=== PATIENT | female | born 1995 | race Caucasian/White ===

== ENCOUNTER 2018-02-03 08:40 | Emergency (ER) | payer BC ==
[2018-02-03 09:19] VITALS: BP 119/61
--- NOTE | 2018-02-03 10:17 | UC ---
Abdominal Pain Female HPI - HPI Summary HPI Summary: SUDDEN ONSET OF PERIUMBILICAL ABDOMINAL PAIN YESTERDAY AFTERNOON AROUND 2 PM. IS NOW RADIATING TO HER RIGHT LOWER QUADRANT. PATIENT HAS HAD CHILLS BUT DENIES ANY DOCUMENTED FEVER. PAIN WORSE WITH MOVEMENT. IBUPROFEN NOT HELPING. IS NAUSEATED AND HAD 3 EPISODES OF VOMITING TODAY. NO DIARRHEA OR URINARY SYMPTOMS. - History of Current Complaint Chief Complaint: UCAbdominalPain Stated Complaint: LOWER ABD PAIN Time Seen by Provider: 02/03/18 10:01 Hx Obtained From: Patient Hx Last Menstrual Period: 01/19/18-01/22/18 Onset/Duration: Sudden Onset, Lasting Hours, Still Present Timing: Constant Severity Initially: Moderate Severity Currently: Moderate Pain Intensity: 8 Pain Scale Used: 0-10 Numeric Location: Discrete At: RLQ Radiates: No Character: Sharp Aggravating Factor(s): Nothing Alleviating Factor(s): Nothing Associated Signs and Symptoms: Positive: Decreased Appetite, Nausea, Vomiting. Negative: Fever, Urinary Symptoms, Vaginal Discharge Allergies/Adverse Reactions: Allergies Allergy/AdvReac Type Severity Reaction Status Date / Time bees Allergy Anaphylatic Uncoded 02/03/18 09:19 Shock Home Medications: Home Medications EPINEPHrine [Epipen] 1 inj ONCE 02/03/18 [History Confirmed 02/03/18] PMH/Surg Hx/FS Hx/Imm Hx Respiratory History: Asthma - Surgical History Surgical History: None - Family History Known Family History: Negative: Hypertension - Social History Alcohol Use: Occasionally Substance Use Type: None Smoking Status (MU): Never Smoked Tobacco - Immunization History Vaccination Up to Date: Yes Review of Systems Constitutional: Chills Respiratory: Negative Cardiovascular: Negative Gastrointestinal: Abdominal Pain, Nausea Genitourinary: Negative All Other Systems Reviewed And Are Negative: Yes Physical Exam Triage Information Reviewed: Yes Appearance: Well-Nourished, Pain Distress - MODERATE Vital Signs: Initial Vital Signs Temp 99.7 F 02/03/18 09:10 Pulse 84 02/03/18 09:10 Resp 18 02/03/18 09:10 BP 119/61 02/03/18 09:10 Pulse Ox 100 02/03/18 09:10 Vital Signs Reviewed: Yes Eyes: Positive: Conjunctiva Clear ENT: Positive: Hearing grossly normal Neck: Positive: Supple Respiratory Exam: Normal Cardiovascular Exam: Normal Abdomen Description: Positive: Soft, Guarding, Other: - EXQUISITELY TTP PERIUMBILICAL AND RLQ. PAIN WITH PERCUSSION. POSITIVE OBTURATOR. UNABLE TO TEST PSOAS DUE TO PT DISCOMFORT. Bowel Sounds: Positive: Present Musculoskeletal: Positive: No Edema Neurological: Positive: Alert Psychological: Positive: Age Appropriate Behavior Skin: Negative: rashes Abd Pain Female Course/Dx - Course Course Of Treatment: TO [facility] ED BY PRIVATE CAR. PT OFFERED TRANSPORT BY AMBULANCE BUT DECLINES. ADVISED THAT BY NOT TRAVELING IN A MONITORED SETTING SHE COULD BE RISKING WORSENING OF HER CONDITION THAT COULD POSE A THREAT TO HER LIFE, HEALTH AND MEDICAL SAFETY. SHE. VERBALIZES UNDERSTANDING AND CONTINUES TO DECLINE AMBULANCE TRANSFER. - Differential Dx/Diagnosis Provider Diagnoses: RLQ PAIN - SUSPECT APPY - Physician Notification/Consults Discussed Care of Patient With: Leta Christianson - TO [facility] ED BY PRIVATE CAR Time Discussed With Above Provider: 10:12 Instructed by Provider To: MD Will See In ED Discharge - Sign-Out/Discharge Documenting (check all that apply): Discharge/Admit/Transfer - Discharge Plan Condition: Stable Disposition: HOME Patient Education Materials: Abdominal Pain (ED) Referrals: ROSSY Peña [Primary Care Provider] - If Needed Additional Instructions: YOUR PRESENTATION IS CONCERNING FOR ACUTE APPENDICITIS. GO DIRECTLY TO THE [facility] ED FROM HERE FOR FURTHER EVALUATION. DO NOT EAT OR DRINK ANYTHING. YOU HAVE DECLINED AMBULANCE TRANSFER. BE ADVISED THAT BY NOT TRAVELING IN A MONITORED SETTING YOU COULD BE RISKING WORSENING OF YOUR CONDITION THAT COULD POSE A THREAT TO YOUR LIFE, HEALTH AND MEDICAL SAFETY. - Billing Disposition and Condition Condition: STABLE Disposition: HOME
== END 2018-02-03 10:14 | disposition home or self-care (01) ==
LOC: UCCORT 08:40
DX: R10.31 Right lower quadrant pain (principal)
CPT/HCPCS: 99212; G0463

== ENCOUNTER 2019-05-09 17:29 | Emergency (ER) | payer BC, OTHER ==
[2019-05-09 17:43] VITALS: BP 130/79
--- NOTE | 2019-05-09 18:11 | UC ---
Upper Extremity HPI - HPI Summary HPI Summary: Pt c/o right wrist pain along radial aspect from mid forearm to thumb. Pt was walking her dog and he "took off" on her and puller her right arm with most pain in right wrist. - History of Current Complaint Chief Complaint: UCUpperExtremity Stated Complaint: RT ARM INJURY Time Seen by Provider: 05/09/19 17:45 Hx Obtained From: Patient Hx Last Menstrual Period: pt using an IUD ?: No Onset/Duration: Sudden Onset, Still Present Severity Initially: Moderate Severity Currently: Moderate Pain Intensity: 6 Location Of Pain: Is Discrete @ - right wrist, Radiates To - lateral aspect of right forerm Character: Dull, Aching, Stiffness Aggravating Factor(s): Movement Alleviating Factor(s): Rest Associated Signs And Symptoms: Positive: Negative Related History: Dominant Hand Right - Risk Factors DVT Risk Factors: Negative Septic Arthritis Risk Factor: Negative Compartment Syndrome Risk Factors: Pain - Allergies/Home Medications Allergies/Adverse Reactions: Allergies Allergy/AdvReac Type Severity Reaction Status Date / Time bees Allergy Anaphylatic Uncoded 05/09/19 17:43 Shock PMH/Surg Hx/FS Hx/Imm Hx Previously Healthy: Yes - Surgical History Surgical History: None - Family History Known Family History: Negative: Hypertension - Social History Occupation: Employed Full-time Lives: With Family Alcohol Use: Occasionally Substance Use Type: None Smoking Status (MU): Never Smoked Tobacco Have You Smoked in the Last Year: No - Immunization History Vaccination Up to Date: Yes Review of Systems All Other Systems Reviewed And Are Negative: Yes Constitutional: Positive: Negative Skin: Positive: Negative Eyes: Positive: Negative ENT: Positive: Negative Respiratory: Positive: Negative Cardiovascular: Positive: Negative Gastrointestinal: Positive: Negative Genitourinary: Positive: Negative Motor: Positive: Decreased ROM - rigth wrist and thumb Musculoskeletal: Positive: Arthralgia, Decreased ROM, Myalgia Neurological: Positive: Negative Psychological: Positive: Negative Is Patient Immunocompromised?: No Physical Exam Triage Information Reviewed: Yes Appearance: Pain Distress Vital Signs: Initial Vital Signs Temp 99.6 F 05/09/19 17:38 Pulse 70 05/09/19 17:38 Resp 18 05/09/19 17:38 BP 130/79 05/09/19 17:38 Pulse Ox 100 05/09/19 17:38 Vital Signs Reviewed: Yes Eye Exam: Normal ENT Exam: Normal Dental Exam: Normal Neck exam: Normal Respiratory: Positive: No respiratory distress Musculoskeletal: Positive: Strength Limited @ - right thumb and forearm, ROM Limited @ - right thumb and forearm Neurological Exam: Normal Psychological Exam: Normal Skin Exam: Normal Diagnostics - Radiology No standard instances Radiology Interpretation Completed By: Radiologist - 3 views of the wrist demonstrates no fracture. No other bone or joint abnormality is identified. IMPRESSION: NO FRACTURE OF THE WRIST IS NOTED. Upper Extremity Course/Dx - Differential Dx/Diagnosis Differential Diagnosis/HQI/PQRI: Fracture (Closed), Strain, Sprain Provider Diagnosis: Injury of right forearm and wrist Discharge - Sign-Out/Discharge Documenting (check all that apply): Patient Departure All imaging exams completed and their final reports reviewed: Yes - Discharge Plan Condition: Stable Disposition: HOME Patient Education Materials: Wrist Sprain (ED), Safe Use of NSAIDs (ED) Forms: *Work Release, *Gen. Provider Communication Referrals: [facility] [place] PHYSICIAN REFERRAL [Outside] - If Needed Ronald Carbajal MD [Medical Doctor] - If Needed No Primary Care Phys,NOPCP [Primary Care Provider] - - Billing Disposition and Condition Condition: STABLE Disposition: Home
== END 2019-05-09 18:21 | disposition home or self-care (01) ==
LOC: UCCORT 17:29
DX: S59.911A Unspecified injury of right forearm, initial encounter (principal); X58.XXXA Exposure to other specified factors, initial encounter; Y93.K1 Activity, walking an animal; Y92.9 Unspecified place or not applicable
CPT/HCPCS: 99212; G0463

== ENCOUNTER 2019-07-16 17:22 | Emergency (ER) | payer OTHER ==
--- OUTSIDE RECORDS SUMMARY | 2019-07-16 17:31 | XMS REPORT | Continuity of Care Document ---
:1995 External Reference #:[id number] Author Name Anuj Ledbetter MD (transmitted by agent of provider Arlene Woods) Address [address] [place] [address] Care Team Providers Name Role Phone Keyur Lee PA - Physician Care Team Information V Block Saw Operator [phone] Debt Counselor Giovani Moyer MD Care Team Information V Block Saw Operator [phone] Problems Active Problems Provider Date Allergic rhinitis due to pollen Perla S. 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 Fenstermacher, RPA-C Onset: 12/07/2018 Allergic contact dermatitis due to Perla S. Fenstermacher, RPA-C Onset: 12/07 metal Allergy to bee venom Perla S. Fenstermacher, RPA-C Onset: 12/07/2018 Allergic rhinitis Perla S. Fenstermacher, RPA-C Onset: 12/07/2018 Allergic rhinitis due to animals Perla S. Fenstermacher, RPA-C Onset: 2018 Mild intermittent asthma Perla S. Fenstermacher, RPA-C Onset: 12/07/2018 Allergic urticaria Perla S. Fenstermacher, RPA-C Onset: 12/07/2018 Social History Type Date Description Comments Sex Unknown Tobacco Use Start: Unknown Patient has never smoked Smoking Status Reviewed: 03/15/19 Patient has never smoked Allergies, Adverse Reactions, Alerts Description No Known Drug Allergies Medications Active Medications SIG Qnty Indications Ordering Provider Date Prednisone take 3 tablets by 12tabs Anuj Curran 05/24/2019 10mg Tablets mouth twice a day MD Anatoly for 2 days Mometasone Furoate apply a thin 45gm L23.0 Anuj Rowell. 12/07/2018 0.1% layer to the MD Anatoly Ointment affected area(s) by topical route 2 times per day as needed. Epinephrine use as directed 4units Z91.030 Anuj Rowell. 12/07/2018 0.3mg/0.3ML as needed for MD Anatoly Solution Auto-Inject anaphylaxis. Ventolin HFA inhale 2 puffs by 16gm J45.20 Anuj Curran 12/07/2018 inhalation route MD Anatoly 108(90Base) mcg/Act every 4 hours as Aerosol needed Cetirizine HCL take one tablet 30tabs Anuj Curran 12/07/2018 10mg by mouth every MD Anatoly Tablets day at bedtime Spironolactone Unknown 50mg Tablets Fluocinonide Unknown 0.1% Cream Medications Administered in Office Medication SIG Qnty Indications Ordering Provider Date Allergy Injection 2 Or More Anuj Ledbetter MD 06/14/2019 Injection Allergy Injection 2 Or More Anuj Ledbetter MD 06/07/2019 Injection Allergy Injection 2 Or More Anuj Ledbetter MD 05/31/2019 Injection Allergy Injection 2 Or More Anuj Ledbetter MD 05/23/2019 Injection Allergy Injection 2 Or More Anuj Ledbetter MD 05/21/2019 Injection Allergy Injection 2 Or More Anuj Ledbetter MD 05/15/2019 Injection Allergy Injection 2 Or More Anuj Ledbetter MD 05/10/2019 Injection Allergy Injection 2 Or More Anuj Ledbetter MD 05/08/2019 Injection Allergy Injection 2 Or More Anuj Ledbetter MD 05/03/2019 Injection Allergy Injection 2 Or More Anuj Ledbetter MD 05/01/2019 Injection Allergy Injection 2 Or More Anuj Ledbetter MD 04/27/2019 Injection Allergy Injection 2 Or More Anuj Ledbetter MD 04/24/2019 Injection Allergy Injection 2 Or More Anuj Ledbetter MD 04/19/2019 Injection Allergy Injection 2 Or More Anuj Ledbetter MD 04/17/2019 Injection Allergy Injection 2 Or More Anuj Ledbetter MD 04/13/2019 Injection Allergy Injection 2 Or More Anuj Ledbetter MD 04/10/2019 Injection Allergy Injection 2 Or More Anuj Ledbetter MD 04/04/2019 Injection Allergy Injection 2 Or More Anuj Ledbetter MD 04/02/2019 Injection Allergy Injection 2 Or More Anuj Ledbetter MD 03/30/2019 Injection Allergy Injection 2 Or More Anuj Ledbetter MD 03/27/2019 Injection Allergy Injection 2 Or More Anuj Ledbetter MD 03/23/2019 Injection Allergy Injection 2 Or More Anuj Ledbetter MD 03/20/2019 Injection Immunizations Description No Information Available Vital Signs Date Vital Result Comment 06/14/2019 10:03am BP Systolic 108 mmHg BP Diastolic 81 mmHg Heart Rate 80 /min O2 % BldC Oximetry 96 % 05/23/2019 2:32pm BP Systolic 128 mmHg BP Diastolic 79 mmHg Heart Rate 94 /min Respiratory Rate 16 /min O2 % BldC Oximetry 98 % Results Test Date Facility Test Result H/L Range Note Order 12/19/2018 [facility] Nitric Oxide <pending> Procedures Date Code Description Status 06/14/2019 05172 Allergy Antigens Mult Dose Vials, Five Insect Venoms Completed 06/14/2019 30668 Allergy Injection 2 Or More Completed 06/07/2019 66707 Allergy Antigens Mult Dose Vials, Five Insect Venoms Completed 06/07/2019 86076 Allergy Injection 2 Or More Completed 05/31/2019 85518 Allergy Antigens Mult Dose Vials, Five Insect Venoms Completed 05/31/2019 64658 Allergy Injection 2 Or More Completed 05/23/2019 88982 Allergy Antigens Mult Dose Vials, Five Insect Venoms Completed 05/23/2019 20758 Allergy Injection 2 Or More Completed 05/21/2019 37902 Allergy Antigens Mult Dose Vials, Five Insect Venoms Completed 05/21/2019 79610 Allergy Injection 2 Or More Completed 05/15/2019 95648 Allergy Antigens Mult Dose Vials, Five Insect Venoms Completed 05/15/2019 02431 Allergy Injection 2 Or More Completed 05/10/2019 91168 Allergy Injection 2 Or More Completed 05/10/2019 39245 Allergy Antigens Mult Dose Vials, Five Insect Venoms Completed 05/08/2019 12419 Allergy Antigens Mult Dose Vials, Five Insect Venoms Completed 05/08/2019 47953 Allergy Injection 2 Or More Completed 05/03/2019 62475 Allergy Antigens Mult Dose Vials, Five Insect Venoms Completed 05/03/2019 53914 Allergy Injection 2 Or More Completed 05/01/2019 58764 Allergy Antigens Mult Dose Vials, Five Insect Venoms Completed 05/01/2019 09886 Allergy Injection 2 Or More Completed 04/27/2019 41905 Allergy Antigens Mult Dose Vials, Five Insect Venoms Completed 04/27/2019 74746 Allergy Injection 2 Or More Completed 04/24/2019 15043 Allergy Antigens Mult Dose Vials, Five Insect Venoms Completed 04/24/2019 30059 Allergy Injection 2 Or More Completed 04/19/2019 22501 Allergy Injection 2 Or More Completed 04/19/2019 22631 Allergy Antigens Mult Dose Vials, Five Insect Venoms Completed 04/17/2019 59146 Allergy Antigens Mult Dose Vials, Five Insect Venoms Completed 04/17/2019 64499 Allergy Injection 2 Or More Completed 04/13/2019 72936 Allergy Antigens Mult Dose Vials, Five Insect Venoms Completed 04/13/2019 78426 Allergy Injection 2 Or More Completed 04/10/2019 79952 Allergy Antigens Mult Dose Vials, Five Insect Venoms Completed 04/10/2019 74278 Allergy Injection 2 Or More Completed 04/04/2019 78119 Allergy Antigens Mult Dose Vials, Five Insect Venoms Completed 04/04/2019 68894 Allergy Injection 2 Or More Completed 04/02/2019 11215 Allergy Antigens Mult Dose Vials, Five Insect Venoms Completed 04/02/2019 99352 Allergy Injection 2 Or More Completed 03/30/2019 01223 Allergy Injection 2 Or More Completed 03/30/2019 24356 Allergy Antigens Mult Dose Vials, Five Insect Venoms Completed 03/27/2019 60004 Allergy Antigens Mult Dose Vials, Five Insect Venoms Completed 03/27/2019 27183 Allergy Injection 2 Or More Completed 03/23/2019 71772 Allergy Antigens Mult Dose Vials, Five Insect Venoms Completed 03/23/2019 09240 Allergy Injection 2 Or More Completed 03/20/2019 62477 Allergy Antigens Mult Dose Vials, Five Insect Venoms Completed 03/20/2019 53497 Allergy Injection 2 Or More Completed 03/15/2019 75003 Nitric Oxide Gas Determination Completed 03/15/2019 37006 Bronchodilation Responsiveness Spirometry Pre/Post Completed Bronchodil Adm 12/19/2018 18579 Nitric Oxide Gas Determination Completed 12/19/2018 30927 Bronchodilation Responsiveness Spirometry Pre/Post Completed Bronchodil Adm Medical Devices Description No Information Available Encounters Type Date Location Provider Dx Diagnosis Office Visit 03/15/2019 Krzysztof Torres Z91.018 Allergy to other 8:30a Fenstermacher, foods RPA-C Z91.030 Bee allergy status J30.1 Allergic rhinitis due to pollen J30.89 Other allergic rhinitis J45.20 Mild intermittent asthma, uncomplicated Office Visit 12/19/2018 9:30a Krzysztof Torres J45.20 Mild intermittent Fenstermacher, RPA-C asthma, uncomplicated J30.1 Allergic rhinitis due to pollen J30.89 Other allergic rhinitis L50.0 Allergic urticaria Z91.018 Allergy to other foods Z91.030 Bee allergy status L23.0 Allergic contact dermatitis due to metals Assessments Date Code Description Provider 06/14/2019 T63.461A Toxic effect of venom of wasps, Anuj Ledbetter MD accidental, init 06/14/2019 T63.461A Toxic effect of venom of wasps, Anuj Ledbetter MD accidental, init 06/07/2019 T63.461A Toxic effect of venom of wasps, Anuj Ledbetter MD accidental (unintentional), initial encounter 06/07/2019 T63.461A Toxic effect of venom of wasps, Anuj Ledbetter MD accidental (unintentional), initial encounter 05/31/2019 T63.461A Toxic effect of venom of waspAnuj joseph MD accidental (unintentional), initial encounter 05/31/2019 T63.461A Toxic effect of venom of wasps, Anuj Ledbetter MD accidental (unintentional), initial encounter 05/23/2019 T63.461A Toxic effect of venom of waspsAnuj MD accidental (unintentional), initial encounter 05/23/2019 T63.461A Toxic effect of venom of wasps, Anuj Ledbetter MD accidental (unintentional), initial encounter 05/21/2019 T63.461A Toxic effect of venom of wasps, Anuj Ledbetter MD accidental (unintentional), initial encounter 05/21/2019 T63.461A Toxic effect of venom of wasps, Anuj Ledbetter MD accidental (unintentional), initial encounter 05/15/2019 T63.461A Toxic effect of venom of wasps, Anuj Ledbetter MD accidental (unintentional), initial encounter 05/15/2019 T63.461A Toxic effect of venom of wasps, Anuj Ledbetter MD accidental (unintentional), initial encounter 05/10/2019 T63.461A Toxic effect of venom of wasps, Anuj Ledbetter MD accidental (unintentional), initial encounter 05/10/2019 T63.461A Toxic effect of venom of wasps, Anuj Ledbetter MD accidental (unintentional), initial encounter 05/08/2019 T63.461A Toxic effect of venom of wasps, Anuj Ledbetter MD accidental (unintentional), initial encounter 05/08/2019 T63.461A Toxic effect of venom of wasps, Anuj Ledbetter MD accidental (unintentional), initial encounter 05/03/2019 T63.461A Toxic effect of venom of wasps, Anuj Ledbetter MD accidental (unintentional), initial encounter 05/03/2019 T63.461A Toxic effect of venom of wasps, Anuj Ledbetter MD accidental (unintentional), initial encounter 05/01/2019 T63.461A Toxic effect of venom of wasps, Anuj Ledbetter MD accidental (unintentional), initial encounter 05/01/2019 T63.461A Toxic effect of venom of wasps, Anuj Ledbetter MD accidental (unintentional), initial encounter 04/27/2019 T63.461A Toxic effect of venom of wasps, Anuj Ledbetter MD accidental, init 04/27/2019 T63.461A Toxic effect of venom of wasps, Anuj Ledbetter MD accidental, init 04/24/2019 T63.461A Toxic effect of venom of wasps, Anuj Ledbetter MD accidental, init 04/24/2019 T63.461A Toxic effect of venom of wasps, Anuj Ledbetter MD accidental, init 04/19/2019 T63.461A Toxic effect of venom of wasps, Anuj Ledbetter MD accidental, init 04/19/2019 T63.461A Toxic effect of venom of wasps, Anuj Ledbetter MD accidental, init 04/17/2019 T63.461A Toxic effect of venom of wasps, Anuj Ledbetter MD accidental, init 04/17/2019 T63.461A Toxic effect of venom of wasps, Anuj Ledbetter MD accidental, init 04/13/2019 T63.461A Toxic effect of venom of wasps, Anuj Ledbetter MD accidental, init 04/13/2019 T63.461A Toxic effect of venom of wasps, Anuj Ledbetter MD accidental, init 04/10/2019 T63.461A Toxic effect of venom of wasps, Anuj Ledbetter MD accidental, init 04/10/2019 T63.461A Toxic effect of venom of wasps, Anuj Ledbetter MD accidental, init 04/04/2019 T63.461A Toxic effect of venom of wasps, Anuj Ledbetter MD accidental, init 04/04/2019 T63.461A Toxic effect of venom of wasps, Anuj Ledbetter MD accidental, init 04/02/2019 T63.461A Toxic effect of venom of wasps, Anuj Ledbetter MD accidental, init 04/02/2019 T63.461A Toxic effect of venom of wasps, Anuj Ledbetter MD accidental, init 03/30/2019 T63.461A Toxic effect of venom of wasps, Anuj Ledbetter MD accidental, init 03/30/2019 T63.461A Toxic effect of venom of wasps, Anuj Ledbetter MD accidental, init 03/27/2019 T63.461A Toxic effect of venom of wasps, Anuj Ledbetter MD accidental, init 03/27/2019 T63.461A Toxic effect of venom of wasps, Anuj Ledbetter MD accidental, init 03/23/2019 T63.461A Toxic effect of venom of wasps, Anuj Ledbetter MD accidental, init 03/23/2019 T63.461A Toxic effect of venom of wasps, Anuj Ledbetter MD accidental, init 03/20/2019 T63.461A Toxic effect of venom of wasps, Anuj Ledbetter MD accidental, init 03/20/2019 T63.461A Toxic effect of venom of wasps, Anuj Ledbetter MD accidental, init 03/15/2019 Z91.018 Allergy to other foods Perla S. Fenstermacher, RPA-C 03/15/2019 Z91.030 Bee allergy status Perla S. Fenstermacher, RPA-C 03/15/2019 J30.1 Allergic rhinitis due to pollen Perla S. Fenstermacher, RPA -C 03/15/2019 J30.89 Other allergic rhinitis Perla S. Fenstermacher, RPA-C 03/15/2019 J45.20 Mild intermittent asthma, Perla S. Fenstermacher, RPA-C uncomplicated 12/19/2018 J45.20 Mild intermittent asthma, Perla S. Fenstermacher, RPA-C uncomplicated 12/19/2018 J30.1 Allergic rhinitis due to pollen Perla S. Fenstermacher, RPA -C 12/19/2018 J30.89 Other allergic rhinitis Perla S. Fenstermacher, RPA-C 12/19/2018 L50.0 Allergic urticaria Perla S. Fenstermacher, RPA-C 12/19/2018 Z91.018 Allergy to other foods Perla S. Fenstermacher, RPA-C 12/19/2018 Z91.030 Bee allergy status Perla S. Fenstermacher, RPA-C 12/19/2018 L23.0 Allergic contact dermatitis due to Perla S. Fenstermacher, RPA-C metals Plan of Treatment Future Appointment(s):06/19/2019 8:55 am - Injection 1 at [email or web address]/09/2020 10 :00 am - ANGELA [facility] at [place] Functional Status Description No Information Available Mental Status Description No Information Available Referrals Description No Information Available
--- OUTSIDE RECORDS SUMMARY | 2019-07-16 17:31 | XMS REPORT | Continuity of Care Document ---
:1995 External Reference #:[id number] Author Name Ainsley Wayne Care Team Providers Name Role Phone Keyur Lee PA - Physician Care Team Information Fiber Technician [phone] [employer] Consultant Giovani Moyer MD Care Team Information Fiber Technician [phone] Problems Active Problems Provider Date Allergic rhinitis [...] Medications SIG Qnty Indications Ordering Provider Date Mometasone Furoate apply a thin 45gm L23.0 Anuj Curran 12/07/2018 0.1% layer to the MD Anatoly Ointment affected area(s) by topical route 2 times per day as needed. Epinephrine use as directed 4units Z91.030 Christopher AOlga 12/07/2018 0.3mg/0.3ML as needed for MD Anatoly Solution Auto-Inject anaphylaxis. Ventolin HFA inhale 2 puffs by 16gm J45.20 Clydeophmac A. 12/07/2018 inhalation route MD Anatoly 108(90Base) mcg/Act every 4 hours as Aerosol needed Cetirizine HCL take one tablet 30tabs Anuj Rowell. 12/07/2018 10mg by mouth every MD Anatoly Tablets day at bedtime Spironolactone Unknown 50mg Tablets Fluocinonide Unknown 0.1% Cream History Medications Levocetirizine take one 30tabs J30.81 Anuj Curran 12/07/2018 - Dihydrochloride tablet by MD Anatoly 12/07/2018 5mg mouth daily at Tablets bedtime Qvar Redihaler inhale 2 puffs 1units J45.20 Anuj Rowell. 12/07/2018 - 80mcg/Act twice a day. MD Anatoly 03/15/2019 Aerosol rinse mouth after use. Medications Administered in Office Medication SIG Qnty [...] Available Vital Signs Date Vital Result Comment 05/23/2019 2:32pm BP Systolic 128 mmHg BP Diastolic 79 mmHg Heart Rate 94 /min Respiratory Rate 16 /min O2 % BldC Oximetry 98 % 03/15/2019 8:47am BP Systolic 116 mmHg BP Diastolic 84 mmHg Height 66 inches 5'6" Weight 185.00 lb BMI (Body Mass Index) 29.9 kg/m2 Heart Rate 67 /min Respiratory Rate 16 /min Body Temperature 98.1 F O2 % BldC Oximetry 99 % Results Test Date Facility Test Result H/L Range Note Order 12/19/2018 [facility] Nitric Oxide <pending> Order 12/07/2018 [facility] Inhaler <pending> Training-Patient Demonstrates Competency Order 12/07/2018 [facility] Skin Test Seasonal and <pending> Environmental Order 12/07/2018 [facility] Blood Collection via < pending> Venipuncture Rast Food <pending> Procedures Date Code Description Status 05/23/2019 92712 Allergy Antigens Mult Dose Vials, Five Insect Venoms Completed 05/23/2019 77708 Allergy Injection 2 Or More Completed 05/21/2019 01958 Allergy Antigens Mult Dose Vials, Five Insect Venoms Completed 05/21/2019 65116 Allergy Injection 2 Or More Completed 05/15/2019 03915 Allergy Antigens Mult Dose Vials, Five Insect Venoms Completed 05/15/2019 65201 Allergy Injection 2 Or More Completed 05/10/2019 72746 Allergy Antigens Mult Dose Vials, Five Insect Venoms Completed 05/10/2019 36283 Allergy Injection 2 Or More Completed 05/08/2019 53323 Allergy Antigens Mult Dose Vials, Five Insect Venoms Completed 05/08/2019 57042 Allergy Injection 2 Or More Completed 05/03/2019 63328 Allergy Injection 2 Or More Completed 05/03/2019 49423 Allergy Antigens Mult Dose Vials, Five Insect Venoms Completed 05/01/2019 14082 Allergy Antigens Mult Dose Vials, Five Insect Venoms Completed 05/01/2019 85681 Allergy Injection 2 Or More Completed 04/27/2019 94002 Allergy Antigens Mult Dose Vials, Five Insect Venoms Completed 04/27/2019 44092 Allergy Injection 2 Or More Completed 04/24/2019 48420 Allergy Antigens Mult Dose Vials, Five Insect Venoms Completed 04/24/2019 29228 Allergy Injection 2 Or More Completed 04/19/2019 52953 Allergy Antigens Mult Dose Vials, Five Insect Venoms Completed 04/19/2019 74120 Allergy Injection 2 Or More Completed 04/17/2019 94548 Allergy Antigens Mult Dose Vials, Five Insect Venoms Completed 04/17/2019 17363 Allergy Injection 2 Or More Completed 04/13/2019 01183 Allergy Injection 2 Or More Completed 04/13/2019 81640 Allergy Antigens Mult Dose Vials, Five Insect Venoms Completed 04/10/2019 95854 Allergy Antigens Mult Dose Vials, Five Insect Venoms Completed 04/10/2019 11520 Allergy Injection 2 Or More Completed 04/04/2019 21334 Allergy Antigens Mult Dose Vials, Five Insect Venoms Completed 04/04/2019 45550 Allergy Injection 2 Or More Completed 04/02/2019 10134 Allergy Antigens Mult Dose Vials, Five Insect Venoms Completed 04/02/2019 33880 Allergy Injection 2 Or More Completed 03/30/2019 29331 Allergy Antigens Mult Dose Vials, Five Insect Venoms Completed 03/30/2019 59987 Allergy Injection 2 Or More Completed 03/27/2019 73335 Allergy Antigens Mult Dose Vials, Five Insect Venoms Completed 03/27/2019 76700 Allergy Injection 2 Or More Completed 03/23/2019 79917 Allergy Injection 2 Or More Completed 03/23/2019 31468 Allergy Antigens Mult Dose Vials, Five Insect Venoms Completed 03/20/2019 48908 Allergy Antigens Mult Dose Vials, Five Insect Venoms Completed 03/20/2019 69762 Allergy Injection 2 Or More Completed 03/15/2019 61895 Nitric Oxide Gas Determination Completed 03/15/2019 16464 Bronchodilation Responsiveness Spirometry Pre/Post Completed Bronchodil Adm 12/19/2018 05326 Nitric Oxide Gas Determination Completed 12/19/2018 72759 Bronchodilation Responsiveness Spirometry Pre/Post Completed Bronchodil Adm 12/07/2018 33143 Nitric Oxide Gas Determination Completed 12/07/2018 52817 Allergy Tests Percutaneous W/ Allergenic Extracts Completed 12/07/2018 80627 Demonstration/Eval,Of Patient Utilization Of Completed Aerosol,Nebulizer 12/07/2018 19376 Bronchodilation Responsiveness Spirometry Pre/Post Completed Bronchodil Adm Medical Devices Description No Information Available Encounters Type Date Location Provider Dx Diagnosis Office Visit 03/15/2019 Krzysztof Robbins. 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 Fenstermacher, RPA-C uncomplicated 12/19/2018 J30.1 Allergic rhinitis due to pollen Perla S. Fenstermacher, RPA -C 12/19/2018 J30.89 Other allergic rhinitis Perla S. Fenstermacher, RPA-C 12/19/2018 L50.0 Allergic urticaria Perla S. Fenstermacher, RPA-C 12/19/2018 Z91.018 Allergy to other foods Perla S. Fenstermacher, RPA-C 12/19/2018 Z91.030 Bee allergy status Perla S. Fenstermacher, RPA-C 12/19/2018 L23.0 Allergic contact dermatitis due to Perla Robbins. Fenstermacher, RPA-C metals 12/07/2018 Z91.018 Allergy to other foods Perla S. Fenstermacher, RPA-C 12/07/2018 L50.0 Allergic urticaria Perla S. Fenstermacher, RPA-C 12/07/2018 J45.20 Mild intermittent asthma, Perla S. Fenstermacher, RPA-C uncomplicated 12/07/2018 J30.81 Allergic rhinitis due to animal Perla S. Fenstermacher, RPA-C (cat) (dog) hair and dander 12/07/2018 J30.89 Other allergic rhinitis Perla S. Fenstermacher, RPA-C 12/07/2018 Z91.030 Bee allergy status Perla S. Fenstermacher, RPA-C 12/07/2018 L23.0 Allergic contact dermatitis due to Perla Mancia, MEGAN-C metals Plan of Treatment Future Appointment(s):05/29/2019 2:15 pm - Injection 1 at [facility]68/09/2020 10 :00 am - ANGELA Levi at [facility]89/13/2019 - Perla Mancia, MEGAN- CZ91.018 Allergy to other foodsComments:Patient completed food elimination diet with cautious reintroduction of one food at a time. She has been able to identify gluten and potatoes as triggers for her gastrointestinal symptoms. Continued avoidance of these foods is recommended.Follow up:If condition worsens.Z91.030 Bee allergy statusComments:Patient has decided she would like to start bee venom immunotherapy. Patient will receive injectionson Tuesday in [place] and Tuesday in [place] until she reaches maintenance. Continue to carry EpiPen at all times.Follow up:6 months.J30.1 Allergic rhinitis due to pollenComments:Continue Cetirizine as needed for breakthrough nasal allergy symptoms.Follow up:6 months.J30.89 Other allergic kneeywrwB86.20 Mild intermittent asthma, uncomplicatedComments:Today's PFT is within normal limits. NIOX is 14ppb. Continue Ventolin as needed for breakthrough coughing, wheezing and/or shortness of breath. If symptoms increase in frequency or severity, I would recommend restarting Qvar 80.Follow up:6 months - w/PFT and NIOX prior to visit Functional Status Description No Information Available Mental Status Description No Information Available Referrals Description No Information Available
[2019-07-16 17:51] VITALS: BP 123/84
--- NOTE | 2019-07-16 17:59 | UC ---
Throat Pain/Nasal Raghu HPI - HPI Summary HPI Summary: 24 yo female with sore throat and fever x 1 day fever OROZCO myalgias no n/v/d - History of Current Complaint Chief Complaint: UCGeneralIllness Stated Complaint: SORE THROAT, FLU LIKE SYMTPOMS Time Seen by Provider: 07/16/19 17:42 Hx Obtained From: Patient Hx Last Menstrual Period: iud Onset/Duration: Gradual Onset, Lasting Hours Severity: Moderate Pain Intensity: 5 Pain Scale Used: 0-10 Numeric Cough: Nonproductive Associated Signs & Symptoms: Positive: Fever - Epiglottits Risk Factors Epiglottis Risk Factors: Negative - Allergies/Home Medications Allergies/Adverse Reactions: Allergies Allergy/AdvReac Type Severity Reaction Status Date / Time bees Allergy Anaphylatic Uncoded 05/09/19 17:43 Shock Home Medications: Home Medications Albuterol HFA INHALER* [Ventolin HFA Inhaler*] 1 - 2 puff INH Q4H PRN 07/16/19 [ History Confirmed 07/16/19] Allergy Shots 1 udc SUBCUT WEEKLY 07/16/19 [History Confirmed 07/16/19] Ibuprofen TAB* [Advil TAB*] 400 mg PO Q6H PRN 07/16/19 [History Confirmed ] Iud 1 udc VAGINAL ONCE 07/16/19 [History] PMH/Surg Hx/FS Hx/Imm Hx Previously Healthy: Yes - Surgical History Surgical History: Yes Surgery Procedure, Year, and Place: appy - Family History Known Family History: Positive: Hypertension, Diabetes Negative: Cardiac Disease - Social History Alcohol Use: Occasionally Substance Use Type: None Smoking Status (MU): Never Smoked Tobacco Have You Smoked in the Last Year: No - Immunization History Vaccination Up to Date: Yes Review of Systems All Other Systems Reviewed And Are Negative: Yes Constitutional: Positive: Fever, Chills Skin: Positive: Negative Eyes: Positive: Negative ENT: Positive: Sore Throat Respiratory: Positive: Negative Cardiovascular: Positive: Negative Gastrointestinal: Positive: Negative Motor: Positive: Negative Neurovascular: Positive: Negative Musculoskeletal: Positive: Negative Neurological: Positive: Negative Psychological: Positive: Negative Physical Exam Triage Information Reviewed: Yes Appearance: Well-Appearing, No Pain Distress, Well-Nourished Vital Signs: Initial Vital Signs Temp 100.2 F 07/16/19 17:48 Pulse 100 07/16/19 17:48 Resp 22 07/16/19 17:48 BP 123/84 07/16/19 17:48 Pulse Ox 100 07/16/19 17:48 Vital Signs Reviewed: Yes Eyes: Positive: Conjunctiva Clear ENT: Positive: Hearing grossly normal, Pharyngeal erythema, Nasal congestion, TMs normal, Tonsillar swelling, Tonsillar exudate, Uvula midline. Negative: Nasal drainage, Trismus, Muffled voice, Hoarse voice, Sinus tenderness Dental Exam: Normal Neck: Positive: Supple, Nontender, Enlarged Nodes @ - ant cerv Respiratory: Positive: Lungs clear, Normal breath sounds, No respiratory distress Cardiovascular: Positive: RRR, No Murmur Musculoskeletal: Positive: ROM Intact, No Edema Neurological: Positive: Alert, Muscle Tone Normal Psychological Exam: Normal Skin Exam: Normal Throat Pain/Nasal Course/Dx - Course Course Of Treatment: strep + flu - - Differential Dx/Diagnosis Provider Diagnosis: Strep throat Discharge ED - Sign-Out/Discharge Documenting (check all that apply): Patient Departure All imaging exams completed and their final reports reviewed: No Studies - Discharge Plan Condition: Stable Disposition: HOME Prescriptions: Amoxicillin PO (*) [Amoxicillin 875 MG (*)] 875 mg PO BID #20 tab Patient Education Materials: Strep Throat (ED) Forms: *Work Release Referrals: Brandon Hutchison PA [Primary Care Provider] - If Needed Additional Instructions: rest/fluids tylenol or advil recheck in 4 days if not better - Billing Disposition and Condition Condition: STABLE Disposition: Home
[2019-07-16 18:15] LABS: Influenza A Molecular NEGATIVE (Negative); Influenza B Molecular NEGATIVE (Negative)
== END 2019-07-16 18:18 | disposition home or self-care (01) ==
LOC: UCCORT 17:22
DX: J02.0 Streptococcal pharyngitis (principal); R51 Headache; M79.10 Myalgia, unspecified site; Z91.09 Other allergy status, other than to drugs and biological substances
CPT/HCPCS: 87651; 99212; G0463

== ENCOUNTER 2019-07-31 13:36 | Emergency (ER) | payer OTHER ==
[2019-07-31 13:48] VITALS: BP 136/88
--- NOTE | 2019-07-31 14:47 | UC ---
Abdominal Pain Female HPI - HPI Summary HPI Summary: Patient is a 24-year-old female presenting with diarrhea 2 days and nausea, LLQ pain, and chills x1 day. Notes decreased appetite and fluid intake 2 days. Describes diarrhea as watery, green, with some mucus. Describes pain as sharp and worse with ambulating. Denies blood in the stool. Denies radiating pain. Denies urinary symptoms or blood in the urine. Denies vomiting. States nothing relieves her pain including defecation. Patient unsure LMP due to IUD but notes recent spotting. Notes history of ruptured ovarian cysts but that this does not feel anything like that. Denies history of GI disorders other than appendectomy last year. - History of Current Complaint Chief Complaint: UCAbdominalPain Stated Complaint: ABD PAIN Time Seen by Provider: 07/31/19 13:41 Hx Last Menstrual Period: has mirena 09/2018 Onset/Duration: Sudden Onset Timing: Constant Severity Currently: Mild Pain Intensity: 4 Allergies/Adverse Reactions: Allergies Allergy/AdvReac Type Severity Reaction Status Date / Time bees Allergy Anaphylatic Uncoded 07/31/19 13:48 Shock Home Medications: Home Medications Cetirizine* [ZyrTEC 10 MG TAB*] 10 mg PO SEE INSTRUCTIONS 07/31/19 [History Confirmed 07/31/19] Levonorgestrel (Iud) [Mirena IUD] 20 mcg IU ONCE 07/31/19 [History Confirmed ] PMH/Surg Hx/FS Hx/Imm Hx Previously Healthy: Yes - Surgical History Surgical History: Yes Surgery Procedure, Year, and Place: appy. wisdom teeth - Family History Known Family History: Positive: Hypertension, Diabetes Negative: Cardiac Disease - Social History Alcohol Use: Occasionally Substance Use Type: Excessive Caffeine Substance Use Comment - Amount & Last Used: 1 cup coffee & 1 small red bull daily Smoking Status (MU): Never Smoked Tobacco Have You Smoked in the Last Year: No - Immunization History Vaccination Up to Date: Yes Review of Systems All Other Systems Reviewed And Are Negative: Yes Constitutional: Positive: Chills ENT: Positive: Negative Respiratory: Positive: Negative Cardiovascular: Positive: Negative Gastrointestinal: Positive: Abdominal Pain, Diarrhea, Nausea. Negative: Vomiting Musculoskeletal: Positive: Negative Neurological: Positive: Negative Physical Exam Triage Information Reviewed: Yes Appearance: Well-Nourished, Pain Distress Vital Signs: Initial Vital Signs Temp 99.6 F 07/31/19 13:41 Pulse 116 07/31/19 13:41 Resp 15 07/31/19 13:41 BP 136/88 07/31/19 13:41 Pulse Ox 97 07/31/19 13:41 Lab Results 07/31/19 07/31/19 Range/Units 13:54 13:57 POC Urine Color Other POC Urine Clarity Clear POC Urine pH 6.0 (5-9) POC Ur Specif [place] >= 1.030 (1.010-1.030) POC Urine Protein 2+ A (Negative) POC Ur Glucose (UA) Negative (Negative) POC Urine Ketones Negative (Negative) POC Urine Blood 2+ A (Negative) POC Urine Nitrite Negative (Negative) POC Urine Bilirubin 1+ A (Negative) POC Urine Urobilinogen 0.2 (Negative) POC U Leukocyte Esteras Negative (Negative) POC Ur Test Negative (Negative) Vital Signs Reviewed: Yes Eyes: Positive: Conjunctiva Clear ENT: Positive: Hearing grossly normal Neck: Positive: Supple Respiratory Exam: Normal Respiratory: Positive: Lungs clear, Normal breath sounds, No respiratory distress Cardiovascular Exam: Other - regular rhythm Cardiovascular: Positive: Tachycardia Abdomen Description: Positive: Soft, Guarding. Negative: Nontender - LLQ pain on palpation, CVA Tenderness (R), CVA Tenderness (L), Distended, McBurney's Point Tenderness Bowel Sounds: Positive: Present Neurological: Positive: Alert Psychological: Positive: Age Appropriate Behavior Skin Exam: Normal Abd Pain Female Course/Dx - Course Course Of Treatment: Patient tachycardic, with low-grade fever, elevated blood pressure, and LLQ pain , so I instructed to go to ED for further evaluation including possible imaging and lab work. Patient voiced understanding and agreed to go to the ED after leaving here. Discussed patient with Dr. Martínez who agreed with the plan. - Differential Dx/Diagnosis Provider Diagnosis: Abdominal pain, LLQ Discharge ED - Sign-Out/Discharge Documenting (check all that apply): Patient Departure All imaging exams completed and their final reports reviewed: No Studies - Discharge Plan Condition: Stable Disposition: HOME-RECOMMEND TO ED Referrals: Brandon Hutchison PA [Primary Care Provider] - Additional Instructions: The provider that evaluated you today thinks that you need additional testing that can be completed the emergency department. It is recommended that you go directly to emergency department for further evaluation. This evaluation included blood work or imaging. This testing will be directed and decided by the provider that evaluates you at the emergency department. If pain becomes worse, you feel lightheaded, you have uncontrolled vomiting, or you have any other concerns while you are being driven to emergency department as recommended to pullover and contact 911. - Billing Disposition and Condition Condition: STABLE Disposition: Home-Recommend to ED
== END 2019-07-31 14:55 | disposition home health service (06) ==
LOC: UCCORT 13:36
DX: R10.32 Left lower quadrant pain (principal); R00.0 Tachycardia, unspecified; R19.7 Diarrhea, unspecified; Z91.030 Bee allergy status
CPT/HCPCS: 81003; 84702; 99212; G0463